=== PATIENT | female | born 1965 | race Caucasian/White ===

== ENCOUNTER 2024-02-08 15:04 | Outpatient (REF) | payer MEDICAID, SELFPAY | END 2024-02-08 15:05 | disposition home or self-care (01) | LOC: LBN 15:04 | PROVIDERS: PCP Family Medicine; Visit Provider Podiatrist | DX: L97.529 Non-pressure chronic ulcer of other part of left foot with unspecified severity (principal); M79.671 Pain in right foot | CPT/HCPCS: 87077; 87070; 87075; 87186; 87205 ==

== ENCOUNTER → 2024-02-29 02:01 | Outpatient (CLI) | payer MEDICAID, SELFPAY ==
--- NOTE | 2024-02-29 14:43 | DI.RAD_ITS ---
Exam(s) XR FOOT LT COMPLETE EXAM: XR FOOT LT COMPLETE CLINICAL HISTORY: Charcot midfoot/ ? OM,ULCER LT FOOT,M86.9,L97.522,M14.672. TECHNIQUE: 2D digital imaging was performed of the left foot. Three images were obtained. AP, obli que and lateral views were obtained. COMPARISON: CR XR FOOT COMPLETE MIN 3V LT from 01/19/2024 FINDINGS: BONES: Pes planus. There is fragmentation of the cuneiform so with dislocation of the tarsal metatar beka joints and the articulation of the navicular and the cuboid. There is lateral subluxation of the 2nd through 5th metatarsals. There is medial subluxation of the medial cuneiform relative to the 1s t metatarsal bone. The findings are most consistent with a Charcot foot. The cuneiform is a are poo rly visualized on this examination. No definite the erosive lesions are seen to suggest osteomyeliti s. The bones are osteopenic. JOINTS: Please see the above discussion for complete details. SOFT TISSUE: Vascular calcifications are present. There is diffuse soft tissue swelling of the foot. IMPRESSION: 1. Findings consistent with a Charcot foot. 2. Visualization of the tarsal bones are limited due to the alignment, but no definite osteomyelitis is seen. An MRI of the foot should be considered for further evaluation. DATA REPOSITORY: RADIATION DOSE DELIVERED:
--- NOTE | 2024-02-29 14:43 | DI.RAD_ITS ---
Exam(s) XR FOOT RT COMPLETE EXAM: XR FOOT RT COMPLETE CLINICAL HISTORY: comparison,RT FOOT PAIN, M79.671. TECHNIQUE: 2D digital imaging was performed of the right foot. Three images were obtained. AP, obl ique and lateral views were obtained. COMPARISON: No priors for comparison. FINDINGS: BONES: No acute fracture is present. No bony destructive lesion is seen. There is a small enthesophyt e at the posterior calcaneus. There is a chronic appearing deformity involving the lateral aspect of the head of the proximal phalanx of the 5th toe. JOINTS: No dislocation present. The joint spaces are well maintained. SOFT TISSUE: Vascular calcifications are present. IMPRESSION: Unremarkable radiographs of the right foot. DATA REPOSITORY: RADIATION DOSE DELIVERED:
== END ==
PROVIDERS: PCP Family Medicine; Visit Provider Podiatrist
DX: M14.672 Charcot's joint, left ankle and foot (principal); L97.522 Non-pressure chronic ulcer of other part of left foot with fat layer exposed; M86.9 Osteomyelitis, unspecified; M79.671 Pain in right foot
CPT/HCPCS: 73630

== ENCOUNTER → 2024-03-22 01:07 | Outpatient (CLI) | payer MEDICAID, SELFPAY ==
--- NOTE | 2024-03-22 07:45 | DI.RAD_ITS ---
Exam(s) XR FOOT LT COMPLETE EXAM: XR FOOT LT COMPLETE CLINICAL HISTORY: Charcot joint lt foot,om lt foot,n86.9,M14.672. TECHNIQUE: 2D digital imaging was performed. COMPARISON: CR XR FOOT COMPLETE MIN 3V LT from 01/19/2024 CR XR FOOT RT COMPLETE from 02/29/2024 CR XR FOOT LT COMPLETE from 02/29/2024 FINDINGS: 3 views Again noted is dislocation of the 2nd through 5th tarsometatarsal joints, inclusive, similar to previ ous. This includes the main Lisfranc joint. Also fragmentation of the cuneiform bones again noted. No obvious fragmentation of the cuboid. Osteophytic densities dorsal the 1st tarsometatarsal joint again noted possibly represent fracture fragments, similar to previous. There is pes planus. Calcaneus and talus appear unremarkable as does the talonavicular joint. There is significant degenerative changes the articulations between the distal navicular and the cuneiform bones. There appears to be some increased lucency within the bone at the distal medial cuneiform and. No ra diopaque foreign bodies evident. Distal metatarsals and MTP joints all appear unremarkable as do the phalanges. IMPRESSION: Minimal if any significant change compared to 01/19/2024 and 02/29/2024. Findings described above are either related to severe trauma, Charcot's joint, or a combination there of. I note that x-rays of the opposite-right put performed 02/29/2024 were unremarkable. DATA REPOSITORY: RADIATION DOSE DELIVERED:
== END ==
PROVIDERS: PCP Family Medicine; Visit Provider Podiatrist
DX: M14.672 Charcot's joint, left ankle and foot (principal); L97.522 Non-pressure chronic ulcer of other part of left foot with fat layer exposed; M86.9 Osteomyelitis, unspecified; M79.671 Pain in right foot
CPT/HCPCS: 73630

== ENCOUNTER → 2024-04-05 00:42 | Outpatient (CLI) | payer MEDICAID, SELFPAY ==
--- NOTE | 2024-04-05 07:45 | DI.RAD_ITS ---
Exam(s) XR FOOT LT COMPLETE EXAM: XR FOOT LT COMPLETE CLINICAL HISTORY: changes,ostemyelitis lt foot,ulcer,charcot joint,m14.672,L97.522,m86.9. TECHNIQUE: 2D digital imaging was performed. Three views. COMPARISON: CR XR FOOT LT COMPLETE from 03/22/2024 FINDINGS: BONES: No acute fracture is present. JOINTS: Dislocation of the 2nd through 5th tarsal metatarsal joints is again noted. Multiple adjacen t bony fragments. Abnormal alignment of the 1st and 2nd cuneiform is again noted. SOFT TISSUE: Diffuse swelling. Overlying gauze. No gross evidence of foreign body or gas collection . IMPRESSION: Stable appearance of Charcot foot. DATA REPOSITORY: RADIATION DOSE DELIVERED:
== END ==
PROVIDERS: PCP Family Medicine; Visit Provider Podiatrist
DX: L97.522 Non-pressure chronic ulcer of other part of left foot with fat layer exposed; M14.672 Charcot's joint, left ankle and foot; M79.671 Pain in right foot; M86.8X7 Other osteomyelitis, ankle and foot
CPT/HCPCS: 73630

== ENCOUNTER 2024-11-18 09:36 | Day surgery (SDC) | payer MEDICAID, SELFPAY ==
[2024-11-18 10:19] VITALS: BP 178/28; PULSE 81; RESP 14; TEMP 36.5; O2SAT 100
[2024-11-18] MEDS: Tropicam./Phenyleph. (1/2.5%) 5 ML BTL OD ×3 (10:36→10:48)
--- NOTE | 2024-11-18 10:52 | W.ANESPRE ---
General Info Date of Service Date Performed: 11/18/24 Height: 5 ft 5 in Weight: 53.6 kg Body Mass Index (BMI): 19.6 Surgical Procedure: Operation Date: 11/18/24 12:40 Proposed Procedure Side Surgeon p Cataract Extraction with IOL Implant Right Demetris De La Rosa MD Meds Allergies and Home Medications Allergies Allergy/AdvReac Type Severity Reaction Status Date / Time lisinopril Allergy Unknown angioedema Verified 11/18/24 10:38 atorvastatin AdvReac Unknown stomach Verified 11/18/24 10:38 upset Home Medication ?Medication ?Instructions ?Recorded [id number]-kroikyvlbpjny-flanmewo 250 1 tab PO ONCE 01/22/24 mg-250 mg-65 mg tablet (Excedrin Extra Strength) carvedilol 3.125 mg tablet 3.125 mg PO BID 01/22/24 pravastatin 10 mg tablet 10 mg PO DAILY 01/22/24 semaglutide 0.25 mg or 0.5 mg (2 0.5 mg subcut QWEEK 01/22/24 mg/3 mL) subcutaneous pen injector cholecalciferol (vitamin D3) 25 25 mcg PO DAILY 04/05/24 mcg (1,000 unit) capsule losartan 25 mg tablet 12.5 mg PO DAILY 04/05/24 torsemide 20 mg tablet 40 mg PO DAILY 04/05/24 tizanidine 4 mg tablet 4 mg PO QHS PRN 11/04/24 Tresiba U-100 Insulin 4 unit DAILY 11/18/24 Current Visit Medications: Current Medications Generic Name Dose Route Start Last Admin Trade Name Freq PRN Reason Stop Dose Admin Acetaminophen 1,000 mg 11/18/24 06:00 Acetaminophen 500 Mg Tab PO 12/18/24 05:59 Q4H PRN PRN Balanced Salt Solution 500 ml 11/18/24 06:00 Balanced Salt Soln.-Plus 500 Ml Bag OP 12/18/24 05:59 DIRECTED MADHAVI Miscellaneous Medication 0 ml 11/18/24 06:00 Prednisolone 1%, Moxifloxacin 0.5%, Bromfenac 0.09% 5.6ml Btl OD 12/18/24 05:59 DIRECTED MADHAVI Miscellaneous Medication 0 ml 11/18/24 06:00 11/18/24 10:48 Tropicam./Phenyleph. (1/2.5%) 5 Ml Btl OD 12/18/24 05:59 1 drp DIRECTED MADHAVI Administration Tetracaine HCl 0 ml 11/18/24 06:00 Tetracaine 0.5% 4 Ml Btl OD 12/18/24 05:59 DIRECTED [facility] PFS Active Problems Active Problems: Problem Status Onset Code Nuclear age-related cataract, right eye Acute H25.11 Corns and callosities Acute L84 Pain in right foot Acute M79.671 Osteomyelitis of left foot Acute M86.9 Ulcer of left foot with fat layer exposed Acute L97.522 Charcot's joint of left foot Acute M14.672 Systolic murmur Acute R01.1 CKD (chronic kidney disease) Chronic N18.9 Hyperlipemia Acute E78.5 Diabetic neuropathy Acute E11.40 Depression Chronic F32.A Hypertension Chronic I10 T2DM (type 2 diabetes mellitus) Acute E11.9 Anemia Chronic D64.9 Gout Chronic M10.9 Medical History Medical History Congestive heart failure Per pt. states sees cardiology in [place], last ECHO per pt 2023 Tobacco Smoking/Tobacco Use Status: Former Tobacco Use Passive smoking exposure: No Alcohol Alcohol Intake: never Substance Use Substance use: Never Substance use type: does not use Vital Signs and Lab Results Vital Signs Most Recent Vital Signs in EMR: Most Recent Vital Signs Temp Pulse Resp BP Pulse Ox 36.5 C 81 14 178/28 H 100 11/18/24 10:19 11/18/24 10:19 11/18/24 10:19 11/18/24 10:19 11/18/24 10:19 Point of Care Results Point of Care Results: Finger Stick Blood Glucose 109 11/18/24 10:26 Lab Results Blood Type / Crossmatch: No Data to Display Complete Blood Count: No Data to Display Complete Metabolic Panel: No Data to Display Liver Function Panel: No Data to Display Coagulation Panel: No Data to Display Cardiac Panel: No Data to Display Arterial Blood Gas: No Data to Display Venous Blood Gas: No Data to Display Pancreas Panel: No Data to Display Thyroid Panel: No Data to Display Infectious Disease: No Data to Display Blood Cultures: No Data to Display Toxicology Panel: No Data to Display Anesthesia Assessment and Plan Anesthesia History Personal History: No History of Anesthesia Complications Family History: No Family History of Anesthesia Complications Exercise Tolerance Exercise Tolerance: Metabolic Equivalents>4 Pertinent Negatives Pertinent Negatives: No Symptoms of GERD Cardiac & Pulmonary Exam Cardiac Exam: Normal S1/S2 Heart Sounds Pulmonary Exam: Clear Bilateral Breath Sounds Implantable Cardiac Device Does patient have a Pacemaker or an ICD?: No Airway Exam Known Difficult Airway: No Mallampati Class: 1 Mouth Opening: Normal (> 3cm) Thyromental Distance: Greater than 3 cm Neck Range of Motion: Full ROM Neck Circumference: Normal Teeth Condition: Normal Dentition ASA Classification ASA Score: ASA 3 Emergency Case?: No NPO Status NPO Status: NPO Clears >2 hours, Solids >8 hours Anesthesia Plan Resuscitation Status: Full Code Anesthesia Technique: MAC Anesthesia Airway Planned: Natural Airway Monitors Used: Standard Monitors
[2024-11-18 10:53] VITALS: BMI 19.6
[2024-11-18] MEDS: Tetracaine 0.5% 4 ML BTL OD (11:38)
[2024-11-18] MEDS: Povidone-Iodine Ophth 30 ML BTL (11:40)
[2024-11-18] MEDS: Phenylephrine/Lidocaine (15/10) MG/ML 1 ML VIAL (11:45)
[2024-11-18] MEDS: Lidocaine 1% Pres-Free 5 ML VIAL (11:45)
[2024-11-18] MEDS: Trypan Blue 0.06% 0.5 ML SYR (11:46)
[2024-11-18] MEDS: Duovisc Viscoelastic System EACH 1 EACH (11:46)
[2024-11-18] MEDS: Balanced Salt Soln.-PLUS 500 ML BAG OP (11:47)
[2024-11-18] MEDS: Moxifloxacin-PF 1 MG/ML VIAL (11:56)
[2024-11-18] MEDS: Prednisolone 1%, Moxifloxacin 0.5%, Bromfenac 0.09% 5.6ML BTL OD (11:56)
[2024-11-18 12:22] VITALS: BP 164/74; PULSE 79; RESP 16; TEMP 36.3; O2SAT 100
--- NOTE | 2024-11-18 12:22 | W.PM.DSUDISC ---
Date of service: 11/18/24 Discharge Plan Disposition Patient Disposition: Home Discharge Details Attending Provider: Demetris De La Rosa Primary Care Provider: Joseph Arriaza Home Meds and New Rx's Prescriptions: No Action carvedilol 3.125 mg tablet 3.125 mg PO BID Rx Instructions: must administer with a meal/food Excedrin Extra Strength 250-250-65 mg tablet 1 tab PO ONCE pravastatin 10 mg tablet 10 mg PO DAILY semaglutide 0.25 mg or 0.5 mg (2 mg/3 mL) pen injector 0.5 mg subcut QWEEK losartan 25 mg tablet 12.5 mg PO DAILY torsemide 20 mg tablet 40 mg PO DAILY cholecalciferol (vitamin D3) 25 mcg (1,000 unit) capsule 25 mcg PO DAILY tizanidine 4 mg tablet 4 mg PO QHS PRN Tresiba U-100 Insulin 4 unit DAILY Rx Instructions: taking at bedtime Discharge Instructions Stand Alone Forms: DSU Post-Op Cataract, Manuela Nielson (DSU) Discharge Orders Discharge Orders: Discharge Order (Routine); Ordered 11/18/24 Ordered By: Demetris De La Rosa DS: Diagnosis Discharge Diagnosis (1) Nuclear age-related cataract, right eye: Status: Resolved (2) Cortical age-related cataract, right eye: Status: Resolved
--- NOTE | 2024-11-18 12:23 | W.PM.OP ---
Operative Note Operative Note PRE-OP DIAGNOSIS: Dense nuclear/cortical cataract, right eye POST-OP DIAGNOSIS: same Severe diffuse zonular laxity PROCEDURE: Cataract extraction using phacoemulsification with intraocular lens implant, right eye Insertion of capsular tension ring, right eye SURGEON: Demetris De La Rosa ANESTHESIA TYPE: Local By Surgeon and MAC Refer to Anesthesia Record ESTIMATED BLOOD LOSS: 0 PATHOLOGY: none sent COMPLICATIONS: None Patient was transported to: same day Patient's condition: stable Implants: Javon Clareon [id number] Morcher Type 15A capsular tension ring Indications: Progressive decreased vision due to cataract, right eye Procedure Description: CATARACT SURGERY OPERATIVE REPORT PREOPERATIVE DIAGNOSIS: Dense nuclear/cortical cataract, right eye POSTOPERATIVE DIAGNOSIS: Same Diffuse Dondero laxity, right eye, severe OPERATION: Cataract extraction using phacoemulsification with posterior chamber intraocular lens implant, right eye. Insertion of capsular tension ring, right eye IOL: IOL Panel Lay Up Worker/Model: Javon Clareon [id number] IOL Power: + 20.0 diopters IOL Serial Number: [id number] Optic Diameter: 6.0mm Haptic/Overall Diameter: 13.0mm PHACO INFO: Javon Mimuburion Vision System with OZil and Active Fluidics Cumulative Dispersed Energy (CDE): 26.41 seconds SURGEON: Demetris De La Rosa MD, TAMRA ANESTHESIA: Monitored Anesthesia Care (MAC), with local sub-tenon's anesthetic infiltration COMPLICATIONS: None SPECIMENS: None INDICATIONS FOR PROCEDURE: The patient is a 59-year-old lady with history of diabetes with severe diabetic retinopathy who has undergone panretinal laser photocoagulation. She has developed a dense nuclear/cortical cataract in the right eye. The option of cataract surgery was offered to the patient and she wished to proceed. See office notes for detailed information. PROCEDURE: The correct surgical eye was identified and marked as the right eye and the pupil was dilated in the preoperative area using mydriatics and cycloplegics. The dilated pupil size was 5.0 mm. The patient elected to proceed without oral sedation. The patient was brought to the operating room where cardiopulmonary monitoring was instituted and surgical time-out was performed, confirming the correct operative eye and IOL power. Topical anesthesia was administered and ophthalmic povidone-iodine 5% was instilled into the conjunctival fornices. The erwin-ocular area was prepped with Betadine 10% solution and draped in the usual sterile fashion for intraocular surgery, including an aperture drape. A Tegaderm transparent film dressing was cut in half and used to cover the lashes and lid margins. Care was taken to sequester the lashes and lid margins under the Tegaderm dressing. A lid speculum was placed between the lids of the operative eye and the Javon LuxOR Revalia operating microscope was maneuvered into position. Jenaro scissors were then used to make a conjunctival buttonhole approximately 6mm posterior to the limbus in the inferonasal quadrant. Blunt dissection was carried out to expose bare sclera, and a blunt-tipped sub-tenon?s anesthesia cannula was introduced and passed posteriorly along the globe where non-preserved plain lidocaine was injected into posterior sub-Tenon?s space. The red reflex was quite poor due to nuclear density and cortical spoking. A sideport knife was used to make a paracentesis port. VisionBlue was injected into the anterior chamber and allowed to sit for 30 seconds. Intraocular phenylephrine/lidocaine was injected into the anterior chamber. The anterior chamber was then filled with viscoelastic. A keratome knife was used to construct a two--plane clear corneal tunnel extending 2.0mm into clear cornea. A flap was raised on the anterior capsule and capsulorhexis forceps were used to complete a continuous curvilinear capsulorhexis of 5.0 mm. Significant diffuse Dondero laxity was noted. Balanced salt solution was then used to perform cortical cleaving hydrodissection and nuclear hydrodelineation until the lens could be freely rotated within the capsular bag. The lens nucleus was then disassembled and removed within the capsular bag and iris plane using phacoemulsification. Residual cortical material was removed using the I/A handpiece. The posterior capsule was carefully polished to remove as much residual lens epithelial cells as safely possible. With the cataract out, the anterior capsulorrhexis was only approximately 4.5 mm, likely due to the diffuse zonular laxity. A Morcher Type 15A capsular tensioning was inserted into the capsular bag without difficulty, to add zonular support and as prophylaxis against anterior capsular phimosis. The capsular bag was then inflated and the anterior chamber deepened with cohesive viscoelastic. The lens implant described above was inserted into the capsular bag using the Javon Autonome Injector. A Kuglen hook was used to dial the IOL into position. Residual viscoelastic was then removed first from posterior to the IOL, then from the anterior chamber using the I/A handpiece. The lens implant was noted to center nicely within the capsular bag. The incisions were stromally hydrated, and the anterior chamber was reformed using BSS. Then 0.5cc of moxifloxacin 1.0mg/ml were injected into the capsular bag and anterior chamber. The incisions were checked with a Weck spear and found to be secure. Several drops of ophthalmic povidone-iodine 5% were then applied to the eye followed by two drops of combination steroid/NSAID/antibiotic solution. The drapes were removed and a clear plastic protective eye shield was placed over the eye. The patient was then returned to Same Day Surgery in stable condition. Date of Procedure: 11/18/24
--- NOTE | 2024-11-18 12:42 | W.ANESPOSTOP ---
Postoperative Evaluation Date, Time and Location Date Performed: 11/18/24 Time Performed: 12:36 Patient Location: Day Surgery Unit Vital Signs Most Recent Imported Vital Signs: Most Recent Vital Signs Temp Pulse Resp BP Pulse Ox 36.3 C L 79 16 164/74 H 100 11/18/24 12:22 11/18/24 12:22 11/18/24 12:22 11/18/24 12:22 11/18/24 12:22 Pain Score Most Recent Pain Score: Most Recent Pain Score Pain Level 0 11/18/24 12:22 Assessment Mental Status: Awake (Alert & Oriented to Patient Baseline) Airway and Respiratory Function: Patent airway with normal (patient baseline) respiratory exam Cardiovascular Function: Hemodynamically Stable Hydration Status: Adequately Hydrated Nausea & Vomiting: No Nausea or Vomiting Pain: Pt. Denies Any Pain Peripheral Nerve Block: Patient did not receive a nerve block
== END 2024-11-18 12:51 | disposition home or self-care (01) ==
LOC: SUR 09:37
PROVIDERS: PCP Family Medicine; Visit Provider Ophthalmology
PROC: (CPT 66982; principal; 2024-11-18 12:30)
DX: H25.11 Age-related nuclear cataract, right eye (principal); H25.011 Cortical age-related cataract, right eye; E11.319 Type 2 diabetes mellitus with unspecified diabetic retinopathy without macular edema
CPT/HCPCS: 66982; 00123; V2632; J2003

== ENCOUNTER 2024-11-25 11:50 | Day surgery (SDC) | payer MEDICAID, SELFPAY ==
[2024-11-25 11:59] VITALS: BP 168/78; PULSE 82; RESP 16; O2SAT 100
[2024-11-25] MEDS: Tropicam./Phenyleph. (1/2.5%) 5 ML BTL OS ×3 (12:11→12:20)
--- NOTE | 2024-11-25 12:29 | ANES.PREOP_ITS ---
General Info Date of Service Date Performed: 11/25/24 Height: 5 ft 5 in Weight: 52.254 kg Body Mass Index (BMI): 19.1 Surgical Procedure: Operation Date: 11/25/24 14:40 Proposed Procedure Side Surgeon p Cataract Extraction with IOL Implant Left Demetris De La Rosa MD Actual Procedure Side Surgeon p Cataract Extraction with IOL Implant Left Demetris De La Rosa MD Pre-Op Diagnosis Post-Op Diagnosis CATARACT, LEFT EYE Meds Allergies and Home Medications Allergies Allergy/AdvReac Type Severity Reaction Status Date / Time lisinopril Allergy Unknown angioedema Verified 11/25/24 12:13 atorvastatin AdvReac Unknown stomach Verified 11/25/24 12:13 upset Home Medication ?Medication ?Instructions ?Recorded xyubuff-wlupwjpmfwcfi-txbehveh 250 1 tab PO ONCE 01/22/24 mg-250 mg-65 mg tablet (Excedrin Extra Strength) carvedilol 3.125 mg tablet 3.125 mg PO BID 01/22/24 pravastatin 10 mg tablet 10 mg PO DAILY 01/22/24 semaglutide 0.25 mg or 0.5 mg (2 0.5 mg subcut QWEEK 01/22/24 mg/3 mL) subcutaneous pen injector cholecalciferol (vitamin D3) 25 25 mcg PO DAILY 04/05/24 mcg (1,000 unit) capsule losartan 25 mg tablet 12.5 mg PO DAILY 04/05/24 torsemide 20 mg tablet 40 mg PO DAILY 04/05/24 tizanidine 4 mg tablet 4 mg PO QHS PRN 11/04/24 Tresiba U-100 Insulin 4 unit DAILY 11/18/24 Current Visit Medications: Current Medications Generic Name Dose Route Start Last Admin Trade Name Freq PRN Reason Stop Dose Admin Acetaminophen 1,000 mg 11/25/24 06:00 Acetaminophen 500 Mg Tab PO 12/25/24 05:59 Q4H PRN PRN Balanced Salt Solution 500 ml 11/25/24 06:00 Balanced Salt Soln.-Plus 500 Ml Bag OP 12/25/24 05:59 DIRECTED MADHAVI Miscellaneous Medication 0 ml 11/25/24 06:00 Prednisolone 1%, Moxifloxacin 0.5%, Bromfenac 0.09% 5.6ml Btl OS 12/25/24 05:59 DIRECTED MADHAVI Miscellaneous Medication 0 ml 11/25/24 06:00 11/25/24 12:20 Tropicam./Phenyleph. (1/2.5%) 5 Ml Btl OS 12/25/24 05:59 1 drp DIRECTED MADHAVI Administration Tetracaine HCl 0 ml 11/25/24 06:00 Tetracaine 0.5% 4 Ml Btl OS 12/25/24 05:59 DIRECTED MADHAVI PFSH Active Problems Active Problems: Problem Status Onset Code Nuclear age-related cataract, left eye Acute H25.12 Cortical age-related cataract, right eye Resolved H25.011 Nuclear age-related cataract, right eye Resolved H25.11 Corns and callosities Acute L84 Pain in right foot Acute M79.671 Osteomyelitis of left foot Acute M86.9 Ulcer of left foot with fat layer exposed Acute L97.522 Charcot's joint of left foot Acute M14.672 Systolic murmur Acute R01.1 CKD (chronic kidney disease) Chronic N18.9 Hyperlipemia Acute E78.5 Diabetic neuropathy Acute E11.40 Depression Chronic F32.A Hypertension Chronic I10 T2DM (type 2 diabetes mellitus) Acute E11.9 Anemia Chronic D64.9 Gout Chronic M10.9 Medical History Medical History Congestive heart failure Per pt. states sees cardiology in [place], [facility] ECHO per pt 2023 Tobacco Smoking/Tobacco Use Status: Former Tobacco Use Passive smoking exposure: No Alcohol Alcohol Intake: never Substance Use Substance use: Never Substance use type: does not use Vital Signs and Lab Results Vital Signs Most Recent Vital Signs in EMR: Most Recent Vital Signs Pulse Resp BP Pulse Ox 82 16 168/78 H 100 11/25/24 11:59 11/25/24 11:59 11/25/24 11:59 11/25/24 11:59 Point of Care Results Point of Care Results: Finger Stick Blood Glucose 135 11/25/24 12:15 Lab Results Blood Type / Crossmatch: No Data to Display Complete Blood Count: No Data to Display Complete Metabolic Panel: No Data to Display Liver Function Panel: No Data to Display Coagulation Panel: No Data to Display Cardiac Panel: No Data to Display Arterial Blood Gas: No Data to Display Venous Blood Gas: No Data to Display Pancreas Panel: No Data to Display Thyroid Panel: No Data to Display Infectious Disease: No Data to Display Blood Cultures: No Data to Display Toxicology Panel: No Data to Display Anesthesia Assessment and Plan Anesthesia History Personal History: No History of Anesthesia Complications Family History: No Family History of Anesthesia Complications Exercise Tolerance Exercise Tolerance: Metabolic Equivalents>4 Cardiac & Pulmonary Exam Cardiac Exam: Normal S1/S2 Heart Sounds Pulmonary Exam: Clear Bilateral Breath Sounds Implantable Cardiac Device Does patient have a Pacemaker or an ICD?: No Airway Exam Known Difficult Airway: No Mallampati Class: 1 Mouth Opening: Normal (> 3cm) Thyromental Distance: Greater than 3 cm Neck Range of Motion: Full ROM Neck Circumference: Normal Teeth Condition: Normal Dentition ASA Classification ASA Score: ASA 2 Emergency Case?: No NPO Status NPO Status: NPO Clears >2 hours, Solids >8 hours Anesthesia Plan Resuscitation Status: Full Code Anesthesia Technique: MAC Anesthesia Airway Planned: Natural Airway Monitors Used: Standard Monitors Preoperative Comments:: No MKO previous, would like the same this time. No changes in her health history.
[2024-11-25 12:30] VITALS: BMI 19.1
[2024-11-25] MEDS: Duovisc Viscoelastic System EACH 1 EACH (12:57)
[2024-11-25] MEDS: Moxifloxacin-PF 1 MG/ML VIAL (12:58)
[2024-11-25] MEDS: Lidocaine 1% Pres-Free 5 ML VIAL (12:58)
[2024-11-25] MEDS: Phenylephrine/Lidocaine (15/10) MG/ML 1 ML VIAL (12:59)
[2024-11-25] MEDS: Povidone-Iodine Ophth 30 ML BTL (12:59)
[2024-11-25] MEDS: Balanced Salt Soln.-PLUS 500 ML BAG OP (13:00)
[2024-11-25] MEDS: Trypan Blue 0.06% 0.5 ML SYR (13:00)
[2024-11-25] MEDS: Tetracaine 0.5% 4 ML BTL OS (13:01)
[2024-11-25] MEDS: Prednisolone 1%, Moxifloxacin 0.5%, Bromfenac 0.09% 5.6ML BTL OS (13:01)
[2024-11-25 13:40] VITALS: BP 163/74; PULSE 80; RESP 16; TEMP 36.4; O2SAT 99
--- NOTE | 2024-11-25 13:43 | W.PM.DSUDISC ---
Date of service: 11/25/24 Discharge Plan Disposition Patient Disposition: Home Discharge Details Attending Provider: Demetris De La Rosa Primary Care Provider: Joseph Arriaza Home Meds and New Rx's Prescriptions: No Action carvedilol 3.125 mg tablet 3.125 mg PO BID Rx Instructions: must administer with a meal/food Excedrin Extra Strength 250-250-65 mg tablet 1 tab PO ONCE pravastatin 10 mg tablet 10 mg PO DAILY semaglutide 0.25 mg or 0.5 mg (2 mg/3 mL) pen injector 0.5 mg subcut QWEEK losartan 25 mg tablet 12.5 mg PO DAILY torsemide 20 mg tablet 40 mg PO DAILY cholecalciferol (vitamin D3) 25 mcg (1,000 unit) capsule 25 mcg PO DAILY tizanidine 4 mg tablet 4 mg PO QHS PRN Tresiba U-100 Insulin 4 unit DAILY Rx Instructions: taking at bedtime Discharge Instructions Stand Alone Forms: DSU Post-Op Cataract, Manuela Nielson (DSU) Discharge Orders Discharge Orders: Discharge Order (Routine); Ordered 11/25/24 Ordered By: Demetris De La Rosa DS: Diagnosis Discharge Diagnosis (1) Nuclear age-related cataract, left eye: Status: Resolved (2) Cortical age-related cataract, left eye: Status: Resolved
--- NOTE | 2024-11-25 13:45 | W.PM.OP ---
Operative Note Operative Note PRE-OP DIAGNOSIS: Nuclear/cortical cataract, left eye Poor red reflex, left eye POST-OP DIAGNOSIS: same Severe diffuse zonular laxity, left eye PROCEDURE: Cataract extraction using phacoemulsification with intraocular lens implant, left eye Implantation of capsular tension ring, left eye SURGEON: Demetris De La Rosa ANESTHESIA TYPE: Local By Surgeon and MAC Refer to Anesthesia Record PATHOLOGY: none sent COMPLICATIONS: None Patient was transported to: same day Patient's condition: stable Implants: Javon Clareon [id number] Morcher Type 15A capsular tension ring Indications: Progressive decreased vision due to cataract, left eye Findings: Severe diffuse zonular laxity Procedure Description: CATARACT SURGERY OPERATIVE REPORT PREOPERATIVE DIAGNOSIS: Dense nuclear/cortical cataract, left eye Poor red reflex, left eye POSTOPERATIVE DIAGNOSIS: Same, in addition to severe diffuse zonular laxity OPERATION: Cataract extraction using phacoemulsification with posterior chamber intraocular lens implant, left eye. Insertion of capsule tension ring IOL: IOL Compensation And Hris Analyst/Model: Javon Clareon [id number] IOL Power: + 20.0 diopters IOL Serial Number: [id number] Optic Diameter: 6.0mm Haptic/Overall Diameter: 13.0mm PHACO INFO: Javon Centurion Vision System with OZil and Active Fluidics Cumulative Dispersed Energy (CDE): 9.34 seconds SURGEON: Demetris De La Rosa MD, TAMRA ANESTHESIA: Monitored Anesthesia Care (MAC), with local sub-tenon's anesthetic infiltration COMPLICATIONS: None SPECIMENS: None INDICATIONS FOR PROCEDURE: The patient is a 59-year-old lady with history of diabetes with diabetic retinopathy who has undergone panretinal laser photocoagulation in both eyes. She has developed significant bilateral nuclear/cortical cataracts. She has already undergone cataract surgery in the right eye and is doing well postoperatively. She now presents for cataract surgery in the left eye. See office notes for detailed information. PROCEDURE: The correct surgical eye was identified and marked as the left eye and the pupil was dilated in the preoperative area using mydriatics and cycloplegics. The dilated pupil size was 5.0 mm. The patient elected to proceed without oral sedation. The patient was brought to the operating room where cardiopulmonary monitoring was instituted and surgical time-out was performed, confirming the correct operative eye and IOL power. Topical anesthesia was administered and ophthalmic povidone-iodine 5% was instilled into the conjunctival fornices. The erwin-ocular area was prepped with Betadine 10% solution and draped in the usual sterile fashion for intraocular surgery, including an aperture drape. A Tegaderm transparent film dressing was cut in half and used to cover the lashes and lid margins. Care was taken to sequester the lashes and lid margins under the Tegaderm dressing. A lid speculum was placed between the lids of the operative eye and the Javon LuxOR Revalia operating microscope was maneuvered into position. Jenaro scissors were then used to make a conjunctival buttonhole approximately 6mm posterior to the limbus in the inferonasal quadrant. Blunt dissection was carried out to expose bare sclera, and a blunt-tipped sub-tenon?s anesthesia cannula was introduced and passed posteriorly along the globe where non-preserved plain lidocaine was injected into posterior sub-Tenon?s space. A sideport knife was used to make a paracentesis port. VisionBlue was injected into the anterior chamber and allowed to sit for 30 seconds. Intraocular phenylephrine/lidocaine was injected into the anterior chamber. The anterior chamber was then filled with viscoelastic. A keratome knife was used construct a two-plane clear corneal tunnel extending 2.0mm into clear cornea. A flap was raised on the anterior capsule and capsulorhexis forceps were used to complete a continuous curvilinear capsulorhexis of 4.8 mm. The capsule was noted to be extremely thin. Diffuse zonular laxity was noted. Balanced salt solution was then used to perform cortical cleaving hydrodissection and nuclear hydrodelineation until the lens could be freely rotated within the capsular bag. The lens nucleus was then disassembled and removed within the capsular bag and iris plane using phacoemulsification. The pupil constricted to 3 mm during phacoemulsification, making visualization extremely challenging. Residual cortical material was removed using the irrigation/aspiration handpiece. The posterior capsule was carefully polished to remove as much residual lens epithelial cells as safely possible. The capsular bag was then inflated and the anterior chamber deepened with viscoelastic. A Morcher Type 15A capsular tension ring was inserted into the capsular bag without difficulty. The lens implant described above was inserted into the capsular bag using the Javon Autonome Injector. A Kuglen hook was used to dial the IOL into position. Residual viscoelastic was then removed first from posterior to the IOL, then from the anterior chamber using the I/A handpiece. The lens implant was noted to center nicely within the capsular bag. The incisions were stromally hydrated, and the anterior chamber was reformed using BSS. Then 0.5cc of moxifloxacin 1.0mg/ml were injected into the capsular bag and anterior chamber. The incisions were checked with a Weck spear and found to be secure. Several drops of ophthalmic povidone-iodine 5% were then applied to the eye followed by two drops of combination steroid/NSAID/antibiotic solution. The drapes were removed and a clear plastic protective eye shield was placed over the eye. The patient was then returned to Same Day Surgery in stable condition. Date of Procedure: 11/25/24
--- NOTE | 2024-11-25 14:36 | W.ANESPOSTOP ---
Postoperative Evaluation Date, Time and Location Date Performed: 11/25/24 Time Performed: 13:45 Patient Location: Day Surgery Unit Vital Signs Most Recent Imported Vital Signs: Most Recent Vital Signs Temp Pulse Resp BP Pulse Ox 36.4 C L 80 16 163/74 H 99 11/25/24 13:40 11/25/24 13:40 11/25/24 13:40 11/25/24 13:40 11/25/24 13:40 Pain Score Most Recent Pain Score: Most Recent Pain Score Pain Level 0 11/25/24 13:40 Assessment Mental Status: Awake (Alert & Oriented to Patient Baseline) Airway and Respiratory Function: Patent airway with normal (patient baseline) respiratory exam Cardiovascular Function: Hemodynamically Stable Hydration Status: Adequately Hydrated Nausea & Vomiting: No Nausea or Vomiting Pain: Pt. Denies Any Pain Peripheral Nerve Block: Patient did not receive a nerve block
== END 2024-11-25 14:11 | disposition home or self-care (01) ==
LOC: SUR 11:50
PROVIDERS: PCP Family Medicine; Visit Provider Ophthalmology
PROC: (CPT 66982; principal; 2024-11-25 14:30)
DX: H25.12 Age-related nuclear cataract, left eye (principal); H25.012 Cortical age-related cataract, left eye; Z98.41 Cataract extraction status, right eye
CPT/HCPCS: 66982; 00123; V2632; J2003